=== PATIENT | male | born 1945 | race Caucasian/White ===

== ENCOUNTER 2022-11-17 06:39 | Day surgery (SDC) | payer OTHER ==
[2022-11-17] VITALS (8 sets, daily range): BP systolic 102–150; BP diastolic 70–87; PULSE 80–90; RESP 16–19; TEMP 97.8; O2SAT 94–97
[~2022-11-17] VITALS: Ht 172.7 cm; Wt 94.3 kg
[2022-11-17] MEDS ORDERED: NO HOME MEDS (06:58)
[2022-11-17] MEDS ORDERED: LIDOcaine 1%/PF 5ML 10 MG/ML VIAL SQ ONE (08:05)
[2022-11-17 11:18] LABS: LDH,BODY FLUID 2709 U/L; TOTAL PROTEIN,BODY FLUID 3.4 G/DL
[2022-11-17 11:19] LABS: GLUCOSE,BODY FLUID 0 MG/DL
== END 2022-11-17 10:10 | disposition home or self-care (01) ==
LOC: SSTAY O 06:39
PROVIDERS: ATTEND Radiology Diagnostic Radiology
DX: J90 Pleural effusion, not elsewhere classified (principal); Z87.891 Personal history of nicotine dependence; Z91.013 Allergy to seafood
CPT/HCPCS: 32555; 36415; 82945; 83615; 84157; 87070; 89051; C1729; J3490; A6449

== ENCOUNTER 2023-05-04 12:28 | Inpatient (IN) | payer OTHER, MEDICARE ==
[~2023-05-04] VITALS: Ht 172.7 cm; Wt 66.5 kg
[~2023-05-04 12:28] MED LIST: NO HOME MEDS
[2023-05-04 13:19] LABS: BASOPHILS # (AUTO) 0.1 X10'3 (0-0.2); BASOPHILS % (AUTO) 0.3 % (0-1); EOSINOPHILS # (AUTO) 0.2 X10'3 (0-0.9); EOSINOPHILS % (AUTO) 0.7 % (0-6); HEMATOCRIT 40.9 % (42.0-52.0); LYMPHOCYTES # (AUTO) 2.3 X10'3 (1.1-4.8); LYMPHOCYTES % (AUTO) 8.7 % (21-51); MEAN CORPUSCULAR HEMOGLOBIN 27.2 PG (27.0-31.0); MEAN CORPUSCULAR HGB CONC 31.8 g/dL (33.0-36.5); MEAN CORPUSCULAR VOLUME 85.7 FL (78-98); MEAN PLATELET VOLUME 6.4 FL (7.4-10.4); MONOCYTES # (AUTO) 2.5 X10'3 (0-0.9); MONOCYTES % (AUTO) 9.7 % (2-12); NEUTROPHILS # (AUTO) 20.8 X10'3 (1.8-7.7); NEUTROPHILS % (AUTO) 80.6 % (42-75); PLATELET COUNT 370 X10'3 (140-440); RED BLOOD COUNT 4.77 X10'6 (4.70-6.10)
[2023-05-04] MEDS: normal saline 1000ml 1,000 ML IV ONE ×2 (13:23→15:34)
[2023-05-04 13:38] LABS: WHITE BLOOD COUNT 25.9 X10'3 (4.5-11.0)
[2023-05-04 13:52] LABS: APTT 40 SECONDS (22-32); INR 1.2 INR; PROTHROMBIN TIME 12.9 SECONDS (9.0-12.0)
[2023-05-04 14:01] LABS: MAGNESIUM 2.2 MG/DL (1.5-2.4); PRO BRAIN NATRIURETIC PEPTIDE 1293 PG/ML (0-450)
[2023-05-04] MEDS ORDERED: iohexol 300mg/ml 100ml inj. ONE (14:02)
[2023-05-04 14:23] LABS: ALANINE AMINOTRANSFERASE 44 U/L (12-78); ALBUMIN 2.3 G/DL (3.4-5.0); ALBUMIN/GLOBULIN RATIO 0.4 (1.1-1.5); ALKALINE PHOSPHATASE 324 IU/L (46-116); ANION GAP 12 (8-16); ASPARTATE AMINO TRANSFERASE 50 U/L (10-37); BILIRUBIN,TOTAL 0.7 MG/DL (0.1-1.0); BLOOD UREA NITROGEN 15 MG/DL (7-18); CALCIUM 9.2 MG/DL (8.5-10.1); CHLORIDE 99 MMOL/L (99-107); CREATININE 0.79 MG/DL (0.60-1.10); GLUCOSE 124 MG/DL (70-104); POTASSIUM 3.6 MMOL/L (3.5-5.1); SODIUM 136 MMOL/L (135-145); TOTAL CARBON DIOXIDE 24.7 MMOL/L (24-32); TOTAL PROTEIN 7.6 G/DL (6.4-8.2); eCRCL 74 ML/MIN; eGFR > 90 ML/MIN
[2023-05-04 14:29] LABS: PRO BRAIN NATRIURETIC PEPTIDE 1072 PG/ML (0-450)
[2023-05-04 14:36] LABS: PLATELET ESTIMATE NORMAL; TOTAL CELLS COUNTED 100
[2023-05-04 14:37] LABS: ANISOCYTOSIS 3+
[2023-05-04] MEDS: normal saline 1000ML IV soln IVB ONE (14:40)
[2023-05-04 15:42] LABS: BILIRUBIN,URINE NEGATIVE (Neg); CLARITY,URINE CLOUDY (Clear); COLOR,URINE YELLOW (Yellow); GLUCOSE, URINE NEGATIVE (Neg); KETONES,URINE NEGATIVE (Neg); LEUKOCYTE ESTERASE ,URINE NEGATIVE (Neg); NITRITES, URINE NEGATIVE (Neg); OCCULT BLOOD,URINE MODERATE (Neg); PH,URINE 6.5 (4.8-8.0); PROTEIN,URINE TRACE mg/dl (Neg); UROBILINOGEN,URINE 0.2 E.U/dL (0.2-1.0)
[2023-05-04 15:46] LABS: UA COLLECTION TYPE URINAL
[2023-05-04 15:47] LABS: MUCUS STRANDS MANY /LPF (Neg); SQUAMOUS EPITHELIAL CELL,UR FEW /LPF (FEW)
[2023-05-04 15:48] LABS: RBC,URINE TNTC /HPF (0-2)
[2023-05-04 15:50] LABS: BACTERIA,URINE FEW /HPF (Neg); CAL OXALATE CRYSTALS 1+ /HPF (NEGATIVE)
[2023-05-04] MEDS: CefTRIAXone 2gm/D5W 50ml BAG 50 ML IV ONE (17:17)
[2023-05-04] MEDS ORDERED: acetaminophen 325mg tablet PO PRN (17:25)
[2023-05-04] MEDS ORDERED: magnesium 4gm in 100ml NS 100 ML IV PRN (17:25)
[2023-05-04] MEDS ORDERED: ondansetron/PF 4mg/2ml inj IV PRN (17:25)
[2023-05-04] MEDS ORDERED: magnesium 2GM in 50ml NS 50 ML IV PRN (17:25)
[2023-05-04] MEDS ORDERED: potassium Cl 20 mEq SR tablet PO PRN (17:25)
[2023-05-04] MEDS ORDERED: bisacodyl 10mg suppository rectal RC PRN (17:25)
[2023-05-04] MEDS ORDERED: potassium Cl 40MEQ/1/2NS 520ml 520 ML IV PRN (17:25)
[2023-05-04] MEDS: normal saline 1000ml 1,000 ML IV SCH (17:57)
[2023-05-04] MEDS ORDERED: morphine 2 MG/ML inj. syringe IV PRN (18:25)
[2023-05-04] MEDS: K and/or MAG REPLACEMENT MC SCH (19:42)
[2023-05-04 22:50] VITALS: BP 104/42; PULSE 90; RESP 21; TEMP 97; O2SAT 98
[2023-05-04] MEDS ORDERED: AMI200T PO (23:11)
[2023-05-04] MEDS ORDERED: ATOR40TA71 PO (23:11)
[2023-05-04] MEDS ORDERED: APIX5TAB3 PO (23:11)
[2023-05-04 23:19] VITALS: RESP 21; O2SAT 98
[2023-05-04] MEDS: piperacillin/tazo 4.5gm/100ml 100 ML IV SCH (23:35)
[2023-05-05] VITALS (14 sets, daily range): BP systolic 69–129; BP diastolic 42–67; PULSE 68–77; RESP 12–16; TEMP 97.3–98.9; O2SAT 93–99
[2023-05-05 06:33] LABS: BASOPHILS # (AUTO) 0.1 X10'3 (0-0.2); BASOPHILS % (AUTO) 0.4 % (0-1); EOSINOPHILS # (AUTO) 0.2 X10'3 (0-0.9); EOSINOPHILS % (AUTO) 1.3 % (0-6); HEMATOCRIT 32.1 % (42.0-52.0); HEMOGLOBIN 10.6 g/dl (14.0-17.9); LYMPHOCYTES # (AUTO) 1.4 X10'3 (1.1-4.8); LYMPHOCYTES % (AUTO) 9.4 % (21-51); MEAN CORPUSCULAR HGB CONC 32.9 g/dL (33.0-36.5); MEAN PLATELET VOLUME 6.5 FL (7.4-10.4); MONOCYTES # (AUTO) 1.2 X10'3 (0-0.9); MONOCYTES % (AUTO) 8.3 % (2-12); NEUTROPHILS # (AUTO) 11.6 X10'3 (1.8-7.7); NEUTROPHILS % (AUTO) 80.6 % (42-75); PLATELET COUNT 251 X10'3 (140-440); RED BLOOD COUNT 3.77 X10'6 (4.70-6.10); RED CELL DISTRIBUTION WIDTH 21.6 % (11.5-14.5); WHITE BLOOD COUNT 14.4 X10'3 (4.5-11.0)
[2023-05-05] MEDS: morphine 4 MG/ML inj SYRINge IV PRN (06:45)
[2023-05-05 07:00] LABS: ALANINE AMINOTRANSFERASE 28 U/L (12-78); ALBUMIN 1.7 G/DL (3.4-5.0); ALBUMIN/GLOBULIN RATIO 0.3 (1.1-1.5); ALKALINE PHOSPHATASE 244 IU/L (46-116); ANION GAP 5 (8-16); ASPARTATE AMINO TRANSFERASE 31 U/L (10-37); BILIRUBIN,TOTAL 0.6 MG/DL (0.1-1.0); BLOOD UREA NITROGEN 9 MG/DL (7-18); BUN/CREATININE RATIO 13.4 (10.0-20.0); CALCIUM 8.1 MG/DL (8.5-10.1); CHLORIDE 105 MMOL/L (99-107); CREATININE 0.67 MG/DL (0.60-1.10); GLUCOSE 88 MG/DL (70-104); MAGNESIUM 1.8 MG/DL (1.5-2.4); POTASSIUM 4.2 MMOL/L (3.5-5.1); SODIUM 139 MMOL/L (135-145); TOTAL CARBON DIOXIDE 29.2 MMOL/L (24-32); TOTAL PROTEIN 6.8 G/DL (6.4-8.2); eCRCL 87 ML/MIN; eGFR > 90 ML/MIN
[2023-05-05] MEDS ORDERED: LIDOcaine 1% (10mg/ml)w/preservative inj. 20ml MDV ONE (09:59)
[2023-05-05] MEDS: LACTOSE-REDUCED FOOD 237ML LIQUID PO SCH (13:00)
[2023-05-05] MEDS ORDERED: HYDROmorphone inj. 0.5 MG/0.5 ML DISP.SYRIN IV PRN (18:55)
[2023-05-05] MEDS ORDERED: oxyCODONE/APAP 5-325mg tablet PO PRN (18:55)
[2023-05-05] MEDS: docusate sod 100mg capsule PO PRN (19:58)
[2023-05-05] MEDS: oxyCODONE/APAP 10/325mg tablet PO PRN (20:00)
[2023-05-05] MEDS: mag hydrox/Alum hydrox/simeth 30ml oral suspension PO PRN (20:00)
[2023-05-06] VITALS (21 sets, daily range): BP systolic 82–104; BP diastolic 47–74; PULSE 69–81; RESP 12–18; TEMP 97.1–98.6; O2SAT 92–100
[2023-05-06 06:10] LABS: BASOPHILS # (AUTO) 0.1 X10'3 (0-0.2); BASOPHILS % (AUTO) 0.4 % (0-1); EOSINOPHILS # (AUTO) 0.3 X10'3 (0-0.9); EOSINOPHILS % (AUTO) 1.7 % (0-6); HEMATOCRIT 31.7 % (42.0-52.0); HEMOGLOBIN 10.2 g/dl (14.0-17.9); LYMPHOCYTES # (AUTO) 1.3 X10'3 (1.1-4.8); LYMPHOCYTES % (AUTO) 8.3 % (21-51); MEAN CORPUSCULAR HEMOGLOBIN 27.4 PG (27.0-31.0); MEAN CORPUSCULAR HGB CONC 32.3 g/dL (33.0-36.5); MEAN CORPUSCULAR VOLUME 84.8 FL (78-98); MEAN PLATELET VOLUME 6.9 FL (7.4-10.4); MONOCYTES # (AUTO) 1.5 X10'3 (0-0.9); MONOCYTES % (AUTO) 9.3 % (2-12); NEUTROPHILS # (AUTO) 12.8 X10'3 (1.8-7.7); NEUTROPHILS % (AUTO) 80.3 % (42-75); PLATELET COUNT 273 X10'3 (140-440); RED BLOOD COUNT 3.73 X10'6 (4.70-6.10); RED CELL DISTRIBUTION WIDTH 21.4 % (11.5-14.5)
[2023-05-06 06:16] LABS: ALANINE AMINOTRANSFERASE 36 U/L (12-78); ALBUMIN 1.7 G/DL (3.4-5.0); ALBUMIN/GLOBULIN RATIO 0.5 (1.1-1.5); ALKALINE PHOSPHATASE 251 IU/L (46-116); ANION GAP 7 (8-16); ASPARTATE AMINO TRANSFERASE 42 U/L (10-37); BILIRUBIN,TOTAL 0.6 MG/DL (0.1-1.0); BLOOD UREA NITROGEN 5 MG/DL (7-18); BUN/CREATININE RATIO 10.6 (10.0-20.0); CALCIUM 7.5 MG/DL (8.5-10.1); CHLORIDE 104 MMOL/L (99-107); CREATININE 0.47 MG/DL (0.60-1.10); GLUCOSE 90 MG/DL (70-104); MAGNESIUM 1.9 MG/DL (1.5-2.4); POTASSIUM 3.5 MMOL/L (3.5-5.1); SODIUM 138 MMOL/L (135-145); TOTAL CARBON DIOXIDE 27.2 MMOL/L (24-32); TOTAL PROTEIN 4.8 G/DL (6.4-8.2); eCRCL 124 ML/MIN; eGFR > 90 ML/MIN
[2023-05-06] MEDS: atorvastatin 20mg tablet PO SCH (08:40)
[2023-05-06] MEDS: amiodarone 200mg tablet PO SCH (08:40)
[2023-05-06] MEDS ORDERED: MIDAZolam 1 MG/ML 5ML VIAL ONE (15:48)
[2023-05-06] MEDS ORDERED: fentaNYL/PF 50MCG/1 ML 2ML syringe ONE (15:48)
[2023-05-06] MEDS ORDERED: LIDOcaine Viscous 15ml cup ONE (15:49)
[2023-05-07] VITALS (21 sets, daily range): BP systolic 85–120; BP diastolic 53–82; PULSE 61–88; RESP 10–16; TEMP 95.5–98; O2SAT 91–100
[2023-05-07 05:24] LABS: BASOPHILS # (AUTO) 0.1 X10'3 (0-0.2); EOSINOPHILS # (AUTO) 0.2 X10'3 (0-0.9); EOSINOPHILS % (AUTO) 1.2 % (0-6); HEMOGLOBIN 10.2 g/dl (14.0-17.9); NEUTROPHILS # (AUTO) 14.3 X10'3 (1.8-7.7)
[2023-05-07 05:27] LABS: BASOPHILS % (AUTO) 0.4 % (0-1); HEMATOCRIT 31.3 % (42.0-52.0); LYMPHOCYTES # (AUTO) 1.6 X10'3 (1.1-4.8); LYMPHOCYTES % (AUTO) 8.9 % (21-51); MEAN CORPUSCULAR HEMOGLOBIN 27.9 PG (27.0-31.0); MEAN CORPUSCULAR HGB CONC 32.5 g/dL (33.0-36.5); MEAN CORPUSCULAR VOLUME 85.8 FL (78-98); MEAN PLATELET VOLUME 6.9 FL (7.4-10.4); MONOCYTES # (AUTO) 1.6 X10'3 (0-0.9); MONOCYTES % (AUTO) 8.8 % (2-12); NEUTROPHILS % (AUTO) 80.7 % (42-75); PLATELET COUNT 307 X10'3 (140-440); RED BLOOD COUNT 3.65 X10'6 (4.70-6.10); WHITE BLOOD COUNT 17.7 X10'3 (4.5-11.0)
[2023-05-07 05:35] LABS: ALANINE AMINOTRANSFERASE 28 U/L (12-78); ALBUMIN 1.7 G/DL (3.4-5.0); ALBUMIN/GLOBULIN RATIO 0.4 (1.1-1.5); ALKALINE PHOSPHATASE 253 IU/L (46-116); ANION GAP 7 (8-16); ASPARTATE AMINO TRANSFERASE 30 U/L (10-37); BILIRUBIN,TOTAL 0.8 MG/DL (0.1-1.0); BLOOD UREA NITROGEN 3 MG/DL (7-18); BUN/CREATININE RATIO 4.8 (10.0-20.0); CHLORIDE 103 MMOL/L (99-107); CREATININE 0.62 MG/DL (0.60-1.10); GLUCOSE 97 MG/DL (70-104); MAGNESIUM 1.8 MG/DL (1.5-2.4); POTASSIUM 3.2 MMOL/L (3.5-5.1); SODIUM 139 MMOL/L (135-145); TOTAL CARBON DIOXIDE 28.6 MMOL/L (24-32); TOTAL PROTEIN 5.7 G/DL (6.4-8.2); eCRCL 94 ML/MIN; eGFR > 90 ML/MIN
[2023-05-07 08:09] LABS: ANISOCYTOSIS 3+; HYPOCHROMASIA 1+; PLATELET ESTIMATE NORMAL
[2023-05-07 08:11] LABS: SCHISTOCYTES FEW; STOMATOCYTES FEW
[2023-05-07] MEDS: docusate sod 100mg capsule PO SCH (08:21)
[2023-05-07] MEDS: potassium Cl 20 mEq SR tablet PO PRN (11:10)
[2023-05-07] MEDS ORDERED: fentaNYL /PF 50mcg/ml 5ml ampule ONE (15:48)
[2023-05-07] MEDS ORDERED: midazolam 1 mg/ML 2ml injection ONE (15:48)
[2023-05-07] MEDS ORDERED: acetaminophen 1000 MG/100ml vial IV ONE (16:23)
[2023-05-07] MEDS ORDERED: sevoflurane 250ml liquid IH ONE (16:23)
[2023-05-07] MEDS ORDERED: meperidine/PF 25mg/ml syringe IV PRN ×3 (16:25)
[2023-05-07] MEDS ORDERED: morphine 2 MG/ML inj. syringe IV PRN (16:25)
[2023-05-07] MEDS ORDERED: ondansetron/PF 4mg/2ml inj IV PRN (16:25)
[2023-05-07] MEDS ORDERED: proCHLORperazine 10 MG/2 ml inj IV PRN (16:25)
[2023-05-07] MEDS ORDERED: morphine 4 MG/ML inj SYRINge IV PRN (16:25)
[2023-05-07] MEDS: ringers solution, lacted 1,000 ML IV SCH (16:25)
[2023-05-07] MEDS ORDERED: ceFAZolin 1000mg inj ONE ×2 (17:10)
[2023-05-07] MEDS ORDERED: propofol inj 20 ML IV ONE (17:10)
[2023-05-07] MEDS ORDERED: rocuronium 10mg/ml inj IV ONE (17:11)
[2023-05-07] MEDS ORDERED: albumin (Human) 5% 250ml 250 ML IV ONE (17:38)
[2023-05-07] MEDS ORDERED: neostigmine methylsulfate 1 MG/ML 10ml vial ONE (17:56)
[2023-05-07] MEDS ORDERED: glycopyrrolate 0.2mg/ml inj ONE (17:57)
[2023-05-08] VITALS (7 sets, daily range): BP systolic 93–122; BP diastolic 57–75; PULSE 66–86; RESP 13–18; TEMP 97.2–98.6; O2SAT 94–99
[2023-05-08 06:03] LABS: BASOPHILS % (AUTO) 0.1 % (0-1); EOSINOPHILS % (AUTO) 0 % (0-6); HEMATOCRIT 28.7 % (42.0-52.0); HEMOGLOBIN 9.3 g/dl (14.0-17.9); LYMPHOCYTES # (AUTO) 0.5 X10'3 (1.1-4.8); LYMPHOCYTES % (AUTO) 2.9 % (21-51); MEAN CORPUSCULAR HEMOGLOBIN 27.5 PG (27.0-31.0); MEAN CORPUSCULAR HGB CONC 32.3 g/dL (33.0-36.5); MEAN CORPUSCULAR VOLUME 85.1 FL (78-98); MEAN PLATELET VOLUME 6.7 FL (7.4-10.4); MONOCYTES # (AUTO) 0.9 X10'3 (0-0.9); MONOCYTES % (AUTO) 5.4 % (2-12); NEUTROPHILS # (AUTO) 15.4 X10'3 (1.8-7.7); NEUTROPHILS % (AUTO) 91.6 % (42-75); PLATELET COUNT 255 X10'3 (140-440); RED BLOOD COUNT 3.38 X10'6 (4.70-6.10); RED CELL DISTRIBUTION WIDTH 21.2 % (11.5-14.5); WHITE BLOOD COUNT 16.8 X10'3 (4.5-11.0)
[2023-05-08 06:20] LABS: ALANINE AMINOTRANSFERASE 19 U/L (12-78); ALBUMIN 1.7 G/DL (3.4-5.0); ALBUMIN/GLOBULIN RATIO 0.5 (1.1-1.5); ALKALINE PHOSPHATASE 221 IU/L (46-116); ANION GAP 5 (8-16); ASPARTATE AMINO TRANSFERASE 24 U/L (10-37); BILIRUBIN,TOTAL 0.8 MG/DL (0.1-1.0); BLOOD UREA NITROGEN 2 MG/DL (7-18); BUN/CREATININE RATIO 5.9 (10.0-20.0); CHLORIDE 101 MMOL/L (99-107); CREATININE 0.34 MG/DL (0.60-1.10); GLUCOSE 137 MG/DL (70-104); MAGNESIUM 1.8 MG/DL (1.5-2.4); POTASSIUM 3.6 MMOL/L (3.5-5.1); SODIUM 136 MMOL/L (135-145); TOTAL CARBON DIOXIDE 29.6 MMOL/L (24-32); TOTAL PROTEIN 5.4 G/DL (6.4-8.2); eCRCL 171 ML/MIN; eGFR > 90 ML/MIN
[2023-05-08] MEDS: HYDROmorphone 1 mg/ml syringe IV PRN (09:07)
[2023-05-09] MEDS: HYDROmorphone inj. 0.5 MG/0.5 ML DISP.SYRIN IV PRN (00:53)
[2023-05-09 06:57] LABS: BASOPHILS % (AUTO) 0.2 % (0-1); EOSINOPHILS % (AUTO) 0.1 % (0-6); HEMATOCRIT 28.3 % (42.0-52.0); HEMOGLOBIN 9.2 g/dl (14.0-17.9); LYMPHOCYTES % (AUTO) 6.1 % (21-51); MEAN CORPUSCULAR HEMOGLOBIN 27.8 PG (27.0-31.0); MEAN CORPUSCULAR HGB CONC 32.3 g/dL (33.0-36.5); MEAN CORPUSCULAR VOLUME 85.9 FL (78-98); MEAN PLATELET VOLUME 7.1 FL (7.4-10.4); MONOCYTES # (AUTO) 1.4 X10'3 (0-0.9); MONOCYTES % (AUTO) 8.3 % (2-12); NEUTROPHILS # (AUTO) 14.5 X10'3 (1.8-7.7); NEUTROPHILS % (AUTO) 85.3 % (42-75); PLATELET COUNT 319 X10'3 (140-440); RED CELL DISTRIBUTION WIDTH 21.7 % (11.5-14.5); WHITE BLOOD COUNT 16.9 X10'3 (4.5-11.0)
[2023-05-09 07:00] VITALS: BP 99/68; PULSE 81; RESP 17; TEMP 97.2; O2SAT 99
[2023-05-09 07:07] LABS: ALANINE AMINOTRANSFERASE 183 U/L (12-78); ALBUMIN 1.5 G/DL (3.4-5.0); ALBUMIN/GLOBULIN RATIO 0.4 (1.1-1.5); ALKALINE PHOSPHATASE 391 IU/L (46-116); ANION GAP 4 (8-16); ASPARTATE AMINO TRANSFERASE 281 U/L (10-37); BILIRUBIN,TOTAL 0.5 MG/DL (0.1-1.0); BLOOD UREA NITROGEN 6 MG/DL (7-18); BUN/CREATININE RATIO 14.6 (10.0-20.0); CALCIUM 7.7 MG/DL (8.5-10.1); CHLORIDE 104 MMOL/L (99-107); CREATININE 0.41 MG/DL (0.60-1.10); GLUCOSE 134 MG/DL (70-104); MAGNESIUM 1.9 MG/DL (1.5-2.4); POTASSIUM 3.2 MMOL/L (3.5-5.1); SODIUM 139 MMOL/L (135-145); TOTAL CARBON DIOXIDE 31.3 MMOL/L (24-32); TOTAL PROTEIN 5.1 G/DL (6.4-8.2); eCRCL 142 ML/MIN; eGFR > 90 ML/MIN
[2023-05-09] MEDS: HYDROcodone/acetaminophen 10/325mg tab PO PRN (07:49)
[2023-05-09] MEDS: pantoprazole 40mg Tablet.DR PO SCH (07:49)
[2023-05-09 09:30] VITALS: RESP 18; O2SAT 97
[2023-05-09 10:00] VITALS: BP 112/79; PULSE 56; RESP 16; TEMP 97.4; O2SAT 97
[2023-05-09] MEDS ORDERED: magnesium 2GM in 50ml NS 50 ML IV PRN (13:10)
[2023-05-09] MEDS ORDERED: potassium Cl 40MEQ/1/2NS 520ml 520 ML IV PRN (13:10)
[2023-05-09] MEDS ORDERED: magnesium Cl slow-release 64mg tablet PO PRN (13:10)
[2023-05-09] MEDS ORDERED: magnesium 4gm in 100ml NS 100 ML IV PRN (13:10)
[2023-05-09] MEDS: potassium Cl 20 mEq SR tablet PO PRN (16:12)
[2023-05-09 19:00] VITALS: BP 143/71; PULSE 88; RESP 18; TEMP 97.4; O2SAT 99
[2023-05-09 22:00] VITALS: BP 132/83; PULSE 60; RESP 16; TEMP 97.5; O2SAT 97
[2023-05-10 07:05] VITALS: BP 92/59; PULSE 70; RESP 16; TEMP 97.1; O2SAT 94
[2023-05-10 10:00] VITALS: BP 115/83; PULSE 83; RESP 15; TEMP 97.1; O2SAT 97
[2023-05-10 11:09] VITALS: RESP 18; O2SAT 97
[2023-05-10 12:12] LABS: BASOPHILS % (AUTO) 0.2 % (0-1); EOSINOPHILS % (AUTO) 0.2 % (0-6); HEMATOCRIT 30.9 % (42.0-52.0); HEMOGLOBIN 9.9 g/dl (14.0-17.9); LYMPHOCYTES % (AUTO) 6.4 % (21-51); MEAN CORPUSCULAR HEMOGLOBIN 27.3 PG (27.0-31.0); MEAN CORPUSCULAR HGB CONC 32.1 g/dL (33.0-36.5); MEAN CORPUSCULAR VOLUME 85.1 FL (78-98); MEAN PLATELET VOLUME 6.4 FL (7.4-10.4); MONOCYTES # (AUTO) 1.7 X10'3 (0-0.9); MONOCYTES % (AUTO) 10.5 % (2-12); NEUTROPHILS # (AUTO) 13.3 X10'3 (1.8-7.7); NEUTROPHILS % (AUTO) 82.7 % (42-75); PLATELET COUNT 312 X10'3 (140-440); RED BLOOD COUNT 3.63 X10'6 (4.70-6.10); RED CELL DISTRIBUTION WIDTH 21.9 % (11.5-14.5); WHITE BLOOD COUNT 16.1 X10'3 (4.5-11.0)
[2023-05-10 12:33] LABS: ALANINE AMINOTRANSFERASE 119 U/L (12-78); ALBUMIN 1.6 G/DL (3.4-5.0); ALBUMIN/GLOBULIN RATIO 0.4 (1.1-1.5); ALKALINE PHOSPHATASE 366 IU/L (46-116); ANION GAP 6 (8-16); ASPARTATE AMINO TRANSFERASE 78 U/L (10-37); BILIRUBIN,TOTAL 0.6 MG/DL (0.1-1.0); BLOOD UREA NITROGEN 2 MG/DL (7-18); BUN/CREATININE RATIO 4.8 (10.0-20.0); CALCIUM 7.5 MG/DL (8.5-10.1); CHLORIDE 101 MMOL/L (99-107); CREATININE 0.42 MG/DL (0.60-1.10); GLUCOSE 107 MG/DL (70-104); POTASSIUM 3.4 MMOL/L (3.5-5.1); SODIUM 138 MMOL/L (135-145); TOTAL CARBON DIOXIDE 30.7 MMOL/L (24-32); TOTAL PROTEIN 5.4 G/DL (6.4-8.2); eCRCL 139 ML/MIN; eGFR > 90 ML/MIN
[2023-05-10] MEDS ORDERED: HYDR-3973 PO (13:37)
[2023-05-10] MEDS: potassium Cl 20 mEq SR tablet PO PRN (14:17)
[2023-05-10] MEDS: magnesium hydroxide 30ml (MOM) UD suspension PO ONE (14:30)
[2023-05-10 15:20] VITALS: RESP 18
== END 2023-05-10 15:26 | disposition home health service (06) | DRG 872 ==
LOC: ER 12:29 → ED HOLD 17:31 → EDBEDREQ 22:28 → ORTHO 4S 22:46 → PACU 05-07 17:43 → ORTHO 4S 05-07 19:15
PROVIDERS: ADMIT Family Medicine; ATTEND Family Medicine
PROC: BW251ZZ Computerized Tomography (CT Scan) of Chest, Abdomen and Pelvis using Low Osmolar Contrast (ICD-10-PCS; 2023-05-04)
PROC: 0J973ZX Drainage of Back Subcutaneous Tissue and Fascia, Percutaneous Approach, Diagnostic (ICD-10-PCS; 2023-05-05)
PROC: 0DB78ZX Excision of Stomach, Pylorus, Via Natural or Artificial Opening Endoscopic, Diagnostic (ICD-10-PCS; 2023-05-06)
PROC: 0DB68ZZ Excision of Stomach, Via Natural or Artificial Opening Endoscopic (ICD-10-PCS; 2023-05-06)
PROC: 02H633Z Insertion of Infusion Device into Right Atrium, Percutaneous Approach (ICD-10-PCS; 2023-05-07)
PROC: 0JB60ZX Excision of Chest Subcutaneous Tissue and Fascia, Open Approach, Diagnostic (ICD-10-PCS; principal; 2023-05-07 16:23)
DX: A41.9 Sepsis, unspecified organism (principal); I48.91 Unspecified atrial fibrillation; K29.70 Gastritis, unspecified, without bleeding; S20.224A Contusion of middle back wall of thorax, initial encounter; K31.7 Polyp of stomach and duodenum; Z20.822 Contact with and (suspected) exposure to COVID-19; X58.XXXA Exposure to other specified factors, initial encounter; G89.29 Other chronic pain; R22.2 Localized swelling, mass and lump, trunk; Y93.89 Activity, other specified; Y92.89 Other specified places as the place of occurrence of the external cause; Y99.8 Other external cause status; Z80.8 Family history of malignant neoplasm of other organs or systems; Z82.5 Family history of asthma and other chronic lower respiratory diseases; Z79.899 Other long term (current) drug therapy; Z79.01 Long term (current) use of anticoagulants; Z91.013 Allergy to seafood; Z87.891 Personal history of nicotine dependence
CPT/HCPCS: 10160; 36415; 43239; 43251; 71045; 71260; 74176; 76700; 76942; 80053; 81001; 83605; 83735; 83880; 84145; 84484; 85007; 85008; 85025; 85610; 85730; 86885; 86900; 86901; 87040; 87081; 87088; 87811; 93005; 97116; 97161; 97530; 99152; 99285; A4615; A4618; A4620; A6258; A6449; A7000; C1758; C1889; G0378; J0131; J0690; J0696; J1170; J2250; J2270; J2543; J2704; J2710; J3010; J3490; J7030; J7120; P9045; Q9967